=== PATIENT | female | born 1950 | race African-American/Black ===

== ENCOUNTER 2016-09-06 14:27 | Emergency (ER) | payer MEDICAID, OTHER ==
[~2016-09-06] VITALS: Ht 177.8 cm; Wt 136.4 kg
[~2016-09-06 14:27] MED LIST: AMLO-511 PO; ATEN25 PO; DIVA500T35 PO; FAMO-136 PO; FERR-89 PO; FOLI1 PO; MULT-1238 PO; PALI234D IM; PREG50 PO; THIA100 PO
[2016-09-06] MEDS ORDERED: ONDANSETRON HCL 4 MG TABLET PO ONE (15:00)
[2016-09-06] MEDS ORDERED: ACETAMINOPHEN 325 MG TABLET PO ONE (15:00)
[2016-09-06 15:47] VITALS: BP 127/86
== END 2016-09-06 15:49 | disposition home or self-care (01) ==
LOC: EMS 14:31
DX: R10.9 Unspecified abdominal pain (principal); R11.2 Nausea with vomiting, unspecified; M79.602 Pain in left arm; M79.601 Pain in right arm; F31.9 Bipolar disorder, unspecified; G89.29 Other chronic pain; E11.9 Type 2 diabetes mellitus without complications; I10 Essential (primary) hypertension; J44.9 Chronic obstructive pulmonary disease, unspecified; N28.9 Disorder of kidney and ureter, unspecified; Z86.73 Personal history of transient ischemic attack (TIA), and cerebral infarction without residual deficits; Z91.14 Patient's other noncompliance with medication regimen; Z88.5 Allergy status to narcotic agent; Z88.8 Allergy status to other drugs, medicaments and biological substances
CPT/HCPCS: 93005; 99283; Q0162; 99285